=== PATIENT | male | born 1995 | race Caucasian/White ===

== ENCOUNTER 2021-11-25 13:16 | Emergency (ER) | payer OTHER, SELFPAY ==
--- NOTE | ~2021-11-25 | XR_ITS ---
EXAMINATION: XR chest 2V DATE: 11/25/2021 13:57 INDICATION: Cough and congestion. COVID-19 pneumonia. TECHNIQUE: Frontal and lateral views of the chest were obtained. COMPARISON: None. FINDINGS: There are airspace opacities in the mid and lower lung zones. No pleural effusion or pneumo thorax. The heart size is normal. IMPRESSION: 1. Airspace opacities in the mid and lower lung zones, consistent with COVID-19 pneumonia. Reviewed, dictated and finalized at location A. [employer] OFFICER
[2021-11-25 13:26] VITALS: BP 138/75; PULSE 115; RESP 16; TEMP 36.9; O2SAT 96
--- NOTE | 2021-11-25 13:32 | ED.URI ---
HPI - URI/Sore Throat General Chief Complaint: Upper Respiratory Infection Stated Complaint: Congestion/cough Time Seen by Provider: 11/25/21 13:33 Source: patient and RN notes reviewed History of Present Illness HPI Narrative: Patient is a 26-year-old male who presents the urgent care with complaints of post Covid cough and congestion. Patient states that his symptoms started on 14 November and he is on day 12 of symptoms . Patient states that he does not currently have a fever. Denies of any chest pain. States that he is short short of breath with exertion. Patient denies of any pain on deep breathing. States that he has been taking Tylenol and ibuprofen. No other acute complaints. No acute distress noted. Patient aware of the plan of care. Some parts of this dictation were generated by voice recognition software and may contain typographical and/or grammatical inaccuracies. Related Data Allergies Allergy/AdvReac Type Severity Reaction Status Date / Time No Known Allergies Allergy Verified 11/25/21 13:28 Review of Systems Review of Systems: CONSTITUTIONAL: Reports of intermittent low-grade fevers EYES: Denies visual changes, redness, or discharge. ENT: Denies rhinorrhea, congestion, sore throat, or otalgia. CARDIOVASCULAR: Denies chest pain, palpitations, or edema. RESPIRATORY: Reports of cough, dyspnea with exertion, and chest congestion GASTROINTESTINAL: Denies abdominal pain, nausea, vomiting, or diarrhea. GENITOURINARY: Denies dysuria or hematuria. SKIN: Denies rash or itching. MUSCULOSKELETAL: Denies back pain, joint pain, or myalgia. NEUROLOGIC: Denies headache, numbness, or weakness. All other systems reviewed are negative, except as documented in HPI. PMFSH Comments At the time of my signature, I reviewed and agree with the nursing past medical, surgical, social, and family history. There is no relevant family history pertinent to the patient complaint. Exam Narrative: GENERAL: This is a well-nourished, well-developed patient, in no apparent distress. HEAD: normocephalic, atraumatic. EYES: PERRL. Sclera clear/white. Vision is grossly intact. EARS: External ears normal, auditory canals clear and without drainage, TMs normal without perforation. Hearing grossly intact. NOSE: External nose normal with no obvious nasal discharge, nares without redness, no rhinorrhea. THROAT: Mucous membranes moist, posterior pharynx clear. Moderate postnasal drainage NECK: Neck supple CARDIOVASCULAR: Regular rate and rhythm without murmurs, gallops, or rubs. RESPIRATORY: Diminished throughout, more noticeable to bilateral lower lobes. Expiratory wheezing throughout with decreased lung sounds to the right upper GASTROINTESTINAL: Abdomen soft, non-tender, nondistended. Bowel sounds are active. No hepato-splenomegaly, or palpable masses. No guarding. SKIN: warm, intact with no suspicious lesions or rash, good texture and turgor. NEURO: awake, alert, and oriented to person, place and time. There were no obvious focal neurologic abnormalities. EXTREMITIES: No clubbing, cyanosis, or edema. Course Vital Signs Vital signs: Vital Signs Temperature 98.4 F 11/25/21 13:26 Pulse Rate 115 H 11/25/21 13:26 Respiratory Rate 16 11/25/21 13:26 Blood Pressure 138/75 11/25/21 13:26 Pulse Oximetry 96 11/25/21 13:26 Temperature 98.4 F 11/25/21 13:26 Pulse Rate 115 H 11/25/21 13:26 Respiratory Rate 16 11/25/21 13:26 Blood Pressure 138/75 11/25/21 13:26 Pulse Oximetry 96 11/25/21 13:26 Reviewed MDM - URI/Sore Throat MDM Narrative Medical decision making narrative: Reviewed x-ray results with the patient. He is aware that chest x-ray does show Covid pneumonia. Covid pneumonia is typically viral however from our facility we are unable to rule out viral versus bacterial and will treat you appropriately. However, symptoms could progress and in that case you need to go to the emergency room. Advised patient to obtai
== END 2021-11-25 14:18 | disposition home or self-care (01) ==
PROVIDERS: Emergency Provider Nurse Practitioner Family
DX: U07.1 COVID-19 (principal); J12.82 Pneumonia due to coronavirus disease 2019
CPT/HCPCS: 71046; 99213; G0463

== ENCOUNTER 2021-12-05 17:05 | Emergency (ER) | payer OTHER, SELFPAY ==
--- NOTE | ~2021-12-05 | XR_ITS ---
EXAMINATION: XR chest 2V DATE: 12/05/2021 17:55 INDICATION: Cough, recent COVID pneumonia TECHNIQUE: PA and lateral views of the chest are obtained. COMPARISON: 11/25/2021 FINDINGS: Patchy opacities persist in the mid and lower lung zones with interval improvement. There i s no pleural effusion or pneumothorax. The cardiomediastinal silhouette is normal. The visualized bon es and soft tissues are unremarkable. IMPRESSION: 1. Findings consistent with improving COVID 19 pneumonia in the mid and lower lung zones. Reviewed, dictated and finalized at location F. S BLOWER HELPER IMPRESSION: 1. Findings consistent with improving COVID 19 pneumonia in the mid and lower l robe zones.
--- NOTE | 2021-12-05 17:15 | ED.URI ---
HPI - URI/Sore Throat General Chief Complaint: Upper Respiratory Infection Stated Complaint: Chest Congestion/Headache Time Seen by Provider: 12/05/21 17:15 Source: patient and RN notes reviewed History of Present Illness HPI Narrative: Patient is a 26-year-old male who presents the urgent care with complaints of persistent cough and diarrhea post COVID. Patient was diagnosed with COVID on November 17 and treated for COVID-pneumonia on the . Patient completed the doxycycline today and completed the steroids. Patient states he is continue to use the albuterol inhaler with mild improvement. Patient currently denies of any shortness of breath. States that he has approximately 4 bouts of loose stools every morning. Denies of any abdominal pain or nausea/vomiting. Denies any recent fevers. No other acute complaints. No acute distress noted. Patient aware of the plan of care. Some parts of this dictation were generated by voice recognition software and may contain typographical and/or grammatical inaccuracies. Related Data Allergies Allergy/AdvReac Type Severity Reaction Status Date / Time No Known Allergies Allergy Verified 11/25/21 13:28 Review of Systems Review of Systems: CONSTITUTIONAL: Denies fever, chills, or sweats. EYES: Denies visual changes, redness, or discharge. ENT: Denies rhinorrhea, congestion, sore throat, or otalgia. CARDIOVASCULAR: Denies chest pain, palpitations, or edema. RESPIRATORY: Reports a persistent cough and intermittent dyspnea post COVID GASTROINTESTINAL: Reports of intermittent loose stools without vomiting, nausea or abdominal pain GENITOURINARY: Denies dysuria or hematuria. SKIN: Denies rash or itching. MUSCULOSKELETAL: Denies back pain, joint pain, or myalgia. NEUROLOGIC: Denies headache, numbness, or weakness. All other systems reviewed are negative, except as documented in HPI. PMFSH Comments At the time of my signature, I reviewed and agree with the nursing past medical, surgical, social, and family history. There is no relevant family history pertinent to the patient complaint. Exam Narrative: GENERAL: This is a well-nourished, well-developed patient, in no apparent distress. HEAD: normocephalic, atraumatic. EYES: PERRL. Sclera clear/white. Vision is grossly intact. EARS: External ears normal NOSE: External nose normal with no obvious nasal discharge, nares without redness, no rhinorrhea. THROAT: Mucous membranes moist, posterior pharynx clear. Mild postnasal drainage NECK: Neck supple CARDIOVASCULAR: Regular rate and rhythm without murmurs, gallops, or rubs. RESPIRATORY: Clear to auscultation. Slightly diminished bibasilar GASTROINTESTINAL: Abdomen soft, non-tender, nondistended. Bowel sounds are active. SKIN: warm, intact with no suspicious lesions or rash, good texture and turgor. NEURO: awake, alert, and oriented to person, place and time. There were no obvious focal neurologic abnormalities. EXTREMITIES: No clubbing, cyanosis, or edema. No joint tenderness, effusion, or edema noted. No calf tenderness. Course Course Level of Care: Express Care Visit Vital Signs Vital signs: Vital Signs Temperature 99.5 F 12/05/21 17:18 Pulse Rate 113 H 12/05/21 17:18 Respiratory Rate 16 12/05/21 17:18 Blood Pressure 138/57 L 12/05/21 17:18 Pulse Oximetry 98 12/05/21 17:18 Temperature 99.5 F 12/05/21 17:18 Pulse Rate 113 H 12/05/21 17:18 Respiratory Rate 16 12/05/21 17:18 Blood Pressure 138/57 L 12/05/21 17:18 Pulse Oximetry 98 12/05/21 17:18 Reviewed MDM - URI/Sore Throat MDM Narrative Medical decision making narrative: Reviewed x-ray results with the patient. He is aware that chest x-ray shows improving COVID-pneumonia. Advised the patient to complete the oral antibiotic regimen as prescribed. Be sure to eat and drink with the medication. Treat your diarrhea with a bland diet, water intake, and Pepto-Bismol. Diarrhea is typical with the antibiotic us
[2021-12-05 17:18] VITALS: BP 138/57; PULSE 113; RESP 16; TEMP 37.5; O2SAT 98
== END 2021-12-05 18:08 | disposition home or self-care (01) ==
PROVIDERS: Emergency Provider Nurse Practitioner Family
DX: U09.9 Post COVID-19 condition, unspecified (principal)
CPT/HCPCS: 71046; 99213; G0463